=== PATIENT | male | born 1960 | race Caucasian/White ===

== ENCOUNTER → 2016-10-26 | Outpatient (CLI) | payer OTHER ==
--- NOTE | 2016-10-26 10:19 | RAD ---
HISTORY: Right foot pain, history of fall 3 months ago Study: Right foot three views AP, lateral, oblique Comparison: None Findings: There is an intra-articular corner fracture of the medial aspect of the base of the 1st proximal phal anx. This could be acute or subacute. There is overlying soft tissue swelling present. The remainder of the bones and joints of the foot are intact and normally aligned peer IMPRESSION: Intra-articular corner fracture medial base 1st proximal phalanx Reported By:
== END | disposition home or self-care (01) ==
LOC: RAD 09:34
PROVIDERS: ATTEND Family Medicine
DX: M79.671 Pain in right foot (principal); S92.911A Unspecified fracture of right toe(s), initial encounter for closed fracture; X58.XXXA Exposure to other specified factors, initial encounter
CPT/HCPCS: 73630

== ENCOUNTER → 2017-05-02 | Outpatient (CLI) | payer SELFPAY ==
--- NOTE | 2017-05-02 15:23 | CT ---
HISTORY: Screening/family history. Study: Cardiac calcium scoring Comparison: Cardiac calcium score dated October 02, 2014. Technique: Multiple axial images of the chest were obtained on a [address] from the aortic arch to the base of the heart with retrospective cardiac gating. Noncontrast evaluation of th e heart was performed for calcium scoring with prospective gating. 3D reconstructions and vessel joao lysis were performed on a vital imaging workstation. Dose reduction techniques including Automated E xposure Control (AEC) and adjustment of mA and kV were utilized. Findings: A total calcium score of 241 is observed. The score results in a mild likelihood of coronary events given the age and sex matched cohort analysis. Evaluation of the coronary arterial system demonstrates no significant disease of the left main coron caterina artery. Mild to moderate atherosclerotic plaque is seen within the right coronary artery, left a nterior descending coronary artery, and left circumflex coronary artery. Extracardiac findings: No pathologically enlarged lymphadenopathy can be observed. The aortic arch is unremarkable in its a ppearance with normal vascular configuration. No significant pericardial effusion can be identified. The visualized portions of the lung parenchyma are unremarkable. No lytic or blastic lesions can b e identified within the visualized bony thorax. The visualized portions of the abdomen demonstrate n ormal perfusion patterns of the spleen and liver. IMPRESSION: Total calcium score of 241 (previous total calcium score of 106), that results in a mild likelihood o f coronary artery events. Reported By:
== END ==
LOC: RAD 12:59
PROVIDERS: ATTEND Family Medicine
DX: Z13.6 Encounter for screening for cardiovascular disorders (principal)